=== PATIENT | female | born 1960 | race Caucasian/White ===

== ENCOUNTER 2021-08-22 14:57 | Emergency (ER) | payer OTHER ==
[2021-08-22 15:23] VITALS: BP 128/90; PULSE 88; RESP 18; TEMP 98.1
[2021-08-22] MEDS ORDERED: guaiFENesin-DM 600/30MG 1 EACH TAB.ER.12H PO STA (17:13)
[2021-08-22] MEDS ORDERED: DEXAMETHASONE SOD PHOSPHATE 10 MG/ML 1 ML VIAL IM STA (17:13)
--- NOTE | 2021-08-22 17:16 | ED ---
URI HPI - General Chief Complaint: Upper Respiratory Infection Stated Complaint: Covid+,wants antibody Time Seen by Provider: 08/22/21 17:01 Source: patient Mode of arrival: ambulatory Limitations: no limitations - History of Present Illness Initial Comments: 61 year-old female patient presents to the emergency department requesting monoclonal antibody infusion after testing positive for COVID. Symptoms started on Wednesday and have been worsening. She reports chief symptom of nasal congestion. States she cannot breathe through her nose. States she does have body aches and cough. Reports diarrhea today. She did start an antibiotic from her physician yesterday. She denies taking any other medications for her symptoms. She reports history of COPD, denies any use of maintenance medications or inhalers. Patient denies any recent rash, cough, shortness of breath, chest pain, abdominal pain, nausea, vomiting, back pain, numbness, tingling, dizziness , weakness, hematuria, dysuria, urinary urgency, urinary frequency, headache, visual changes, or any other complaints. - Related Data Previous Rx's Medication Instructions Recorded Azithromycin [Zithromax Z-pack (6 0 mg PO DIRECTED #6 tab 08/22/21 tabs)] Dexamethasone 6 mg PO DAILY #9 tablet 08/22/21 guaiFENesin-DM 600/30MG [Mucinex 2 each PO Q12HR PRN #20 tab 08/22/21 Dm] Allergies Allergy/AdvReac Type Severity Reaction Status Date / Time No Known Allergies Allergy Verified 08/22/21 15:12 Review of Systems ROS Statement: Those systems with pertinent positive or pertinent negative responses have been documented in the HPI. ROS Other: All systems not noted in ROS Statement are negative. Past Medical History Past Medical History: COPD History of Any Multi-Drug Resistant Organisms: None Reported Past Surgical History: Cholecystectomy Past Psychological History: No Psychological Hx Reported Smoking Status: Never smoker Past Alcohol Use History: None Reported Past Drug Use History: None Reported General Exam Limitations: no limitations General appearance: alert, in no apparent distress, other (This is a well- developed, well-nourished adult female patient in no acute distress.) Eye exam: Present: normal appearance, PERRL, EOMI. Absent: scleral icterus, conjunctival injection, periorbital swelling ENT exam: Present: normal exam, normal oropharynx, mucous membranes moist Respiratory exam: Present: normal lung sounds bilaterally. Absent: respiratory distress, wheezes, rales, rhonchi, stridor Cardiovascular Exam: Present: regular rate, normal rhythm, normal heart sounds. Absent: systolic murmur, diastolic murmur, rubs, gallop, clicks GI/Abdominal exam: Present: soft, normal bowel sounds. Absent: distended, tenderness, guarding, rebound, rigid Neurological exam: Present: alert, oriented X3, CN II-XII intact Psychiatric exam: Present: normal affect, normal mood Skin exam: Present: warm, dry, intact, normal color. Absent: rash Course Vital Signs 08/22/21 08/22/21 15:06 16:12 Temperature 98.1 F Pulse Rate 88 Respiratory 18 18 Rate Blood Pressure 128/90 O2 Sat by Pulse 97 Oximetry Medical Decision Making - Medical Decision Making 61-year-old female patient presented to the emergency department today requesting monoclonal antibody infusion after testing positive for COVID-19. Should she is symptom of nasal congestion. Lungs are clear to auscultation. She is in no respiratory distress. Speaking full sentences without difficulty. Vital signs are normal with 97% oxygen saturation. Unfortunately she does not meet criteria for the infusion at this time. Did discuss these reasons with her. She is given prescription for dexamethasone, azithromycin, and Mucinex DM. She'll be discharged follow up with her primary care physician for recheck in 1-2 days. Return parameters were discussed in detail. She verbalizes understanding and agrees with this plan. My attending is Dr. Zavala. Disposition Clinical Impression: COVID-19 Disposition: HOME SELF-CARE Condition: Good Instructions (If sedation given, give patient instructions): Coronavirus Disease 2019 (COVID-19) Additional Instructions: Tips to help you feel better: -Maintain adequate fluid intake - especially water. -Rest, you are healing your body will require extra sleep. -Eat even if you do not feel like it - broth, jello, toast are fine if you cannot eat full meals. -Take tylenol and motrin alternating (if you have no allergies or have not been instructed to avoid these medications) to help with body aches and fevers. -Obtain over the counter vitamin C, zinc, and vitamin D3. -Take medications as prescribed. Follow-up with your primary care physician for recheck in 1-2 days. Return for any new, worsening, or concerning symptoms. Prescriptions: Dexamethasone 6 mg PO DAILY #9 tablet guaiFENesin-DM 600/30MG [Mucinex Dm] 2 each PO Q12HR PRN #20 tab PRN Reason: Cough Azithromycin [Zithromax Z-pack (6 tabs)] 0 mg PO DIRECTED #6 tab Is patient prescribed a controlled substance at d/c from ED?: No Referrals: Esvin Humphrey DO [Primary Care Provider] - 1-2 days Time of Disposition: 17:16
== END 2021-08-22 17:31 | disposition home or self-care (01) ==
LOC: EC 14:57
DX: U07.1 COVID-19 (principal); J44.9 Chronic obstructive pulmonary disease, unspecified
CPT/HCPCS: 99283; 96372; J1100

== ENCOUNTER → 2023-03-19 | Outpatient (CLI) | payer OTHER ==
--- NOTE | 2023-03-19 10:05 | US ---
EXAMINATION TYPE: US abdomen limited DATE OF EXAM: 03/19/2023 COMPARISON: NONE CLINICAL INDICATION: Female, 62 years old with history of ABD PAIN R19.01 R19.02, K21.9, K44.9, Z12. 11; Patient feels bulge like sensation within upper abd, ongoing for months, at time of today's exam she did not have the bulge feeling Assess for hernia at location of: Left of epigastric Normal appearing soft tissue scan without evidence for herniation IMPRESSION: Unremarkable study. Real-time scanning was performed by the underwriter solicitation director utilizing Valsalva and additional dynamic maneuve rs to assess for hernia. Images of the contralateral side were also acquired for direct comparison.
== END | disposition home or self-care (01) ==
LOC: RADUSWWP 09:32
PROVIDERS: ATTEND Internal Medicine Gastroenterology
DX: Z12.11 Encounter for screening for malignant neoplasm of colon (principal); R19.01 Right upper quadrant abdominal swelling, mass and lump; R19.02 Left upper quadrant abdominal swelling, mass and lump; K21.9 Gastro-esophageal reflux disease without esophagitis; K44.9 Diaphragmatic hernia without obstruction or gangrene
CPT/HCPCS: 76705